=== PATIENT | female | born 1990 | race Caucasian/White ===

== ENCOUNTER → 2020-04-02 | Outpatient (CLI) | payer BC | END | disposition home or self-care (01) | LOC: LABWHC1 12:56 | PROVIDERS: ATTEND Nurse Practitioner Family | DX: Z20.828 Contact with and (suspected) exposure to other viral communicable diseases (principal) | CPT/HCPCS: U0003; C9803 ==

== ENCOUNTER 2021-01-02 13:15 | Observation (INO) | payer BC ==
[2021-01-02] MEDS ORDERED: KETOROLAC 15 MG/ML 1 ML VIAL IM STA (13:35)
[2021-01-02] MEDS ORDERED: SODIUM CHLORIDE 0.9% 1,000 ML IV ONE (13:36)
--- NOTE | 2021-01-02 13:42 | ED ---
ENT HPI - General Chief complaint: ENT Stated complaint: abscess in throat Source: patient, family, RN notes reviewed Mode of arrival: ambulatory Limitations: no limitations - History of Present Illness Initial comments: 30-year-old white female, alert and oriented 4, presents to the emergency room with her mother complaining of 3 days of sore throat and difficulty swallowing. Patient was diagnosed 2 days ago the peritonsillar abscess and prescribed amoxicillin. She's been on it for 2 days with no relief continuing to have fevers and difficulty swallowing. She does have left-sided neck swelling and tenderness. She states that her intake has been decreased and she has not urinated today. She has nausea but no vomiting. She is a nonsmoker. MD complaint: sore throat, difficulty swallowing -: days(s) (3) Location: throat Severity scale (1-10): 8 Consistency: constant Improves with: none Worsens with: swallowing, other (Talking) Associated Symptoms: fever, pain with swallowing, sore throat - Related Data Home Medications Medication Instructions Recorded Confirmed Cystoprotek 1 tab PO BID 08/27/15 08/31/15 Mirabegron [Myrbetriq] 25 mg PO HS 08/27/15 08/31/15 Norgestimate-Ethinyl Estradiol 1 tab PO HS 08/27/15 08/31/15 [Sprintec 28 Day Tablet] valACYclovir [Valtrex] 500 mg PO DAILY PRN 08/27/15 08/31/15 Ibuprofen [Motrin] 200 - 400 mg PO Q6HR PRN 08/31/15 08/31/15 Previous Rx's Medication Instructions Recorded Amoxicillin/Potassium Clav 1 each PO Q12HR #20 tab 08/31/15 [Augmentin 875-125 Tablet] Hydrocodone/Acetaminophen [[place] 1 - 2 each PO Q6HR PRN #40 tab 08/31/15 5-325] predniSONE [Deltasone] 20 mg PO DIRECTED #15 tab 08/31/15 Allergies Allergy/AdvReac Type Severity Reaction Status Date / Time No Known Allergies Allergy Verified 01/02/21 13:24 Review of Systems ROS Statement: Those systems with pertinent positive or pertinent negative responses have been documented in the HPI. ROS Other: All systems not noted in ROS Statement are negative. Past Medical History Additional Past Medical History / Comment(s): interstitial cystitis, sinus infection History of Any Multi-Drug Resistant Organisms: None Reported Past Surgical History: Adenoidectomy, Bladder Surgery, Orthopedic Surgery Additional Past Surgical History / Comment(s): arthroscopy right knee, cystoscopy, sinus surgery Past Anesthesia/Blood Transfusion Reactions: No Reported Reaction Past Psychological History: No Psychological Hx Reported Smoking Status: Never smoker Past Alcohol Use History: Occasional Past Drug Use History: None Reported - Past Family History Mother Family Medical History: No Reported History General Exam Limitations: no limitations General appearance: alert, in no apparent distress Head exam: Present: atraumatic, normocephalic, normal inspection Eye exam: Present: normal appearance, PERRL, EOMI. Absent: scleral icterus, conjunctival injection, periorbital swelling ENT exam: Present: mucous membranes moist Expanded Mouth exam: Present: normal external inspection, muffled voice, tongue normal, tongue elevation. Absent: laceration Throat exam: tonsillar erythema, tonsillar exudate (Bilateral) Neck exam: Present: tenderness, full ROM, lymphadenopathy. Absent: meningismus Respiratory exam: Present: normal lung sounds bilaterally. Absent: respiratory distress, wheezes, rales, rhonchi, stridor, decreased breath sounds Cardiovascular Exam: Present: tachycardia GI/Abdominal exam: Present: soft, normal bowel sounds. Absent: distended, tenderness, guarding, rebound, rigid Extremities exam: Present: normal inspection, full ROM, normal capillary refill. Absent: tenderness, pedal edema, joint swelling, calf tenderness Back exam: Present: normal inspection, full ROM. Absent: tenderness, CVA tenderness (R), CVA tenderness (L), muscle spasm, paraspinal tenderness, vertebral tenderness Neurological exam: Present: alert, oriented X3, CN II-XII intact Psychiatric exam: Present: normal affect, normal mood Skin exam: Present: warm, dry, intact, normal color. Absent: rash Course Vital Signs 01/02/21 01/02/21 01/02/21 13:21 14:24 15:00 Temperature 99.9 F H 98.6 F Pulse Rate 129 H 107 H Respiratory 22 18 18 Rate Blood Pressure 139/76 134/87 O2 Sat by Pulse 99 99 Oximetry 01/02/21 16:00 Temperature Pulse Rate Respiratory 18 Rate Blood Pressure O2 Sat by Pulse 99 Oximetry - Reevaluation(s) Reevaluation #1: 01/02/21 15:38 Patient's voice is clear and she states feeling a little better after IV fluids. Dr. Gutierrez at bedside with a laryngoscope to visualize the oropharynx and t onsils. There is bilateral exudates and erythema noted. Awaiting CT report Time: 15:38 Medical Decision Making - Medical Decision Making WBC count is 14.9 with a neutrophil count of 12.8. CT soft tissue neck shows diffuse cervical adenopathy more than left with an enlarged left-sided tonsil. There is asymmetric enlargement with a left-sided parotid and submandibular salivary glands with a diffuse inflammatory process. Patient was given 10 mg of Decadron IV and started on Unasyn. Blood cultures were sent. Patient will be abdomen with IV fluids and appropriate antibiotics. Case discussed with Dr. Gutierrez - Lab Data Result diagrams: 01/02/21 13:56 01/02/21 13:56 Lab Results 01/02/21 01/02/21 01/02/21 Range/Units 13:56 13:56 15:44 WBC 14.9 H (3.8-10.6) k/uL RBC 4.41 (3.80-5.40) m/uL Hgb 14.7 (11.4-16.0) gm/dL Hct 43.4 (34.0-46.0) % MCV 98.4 (80.0-100.0) fL MCH 33.4 (25.0-35.0) pg MCHC 34.0 (31.0-37.0) g/dL RDW 12.4 (11.5-15.5) % Plt Count 238 (150-450) k/uL MPV 7.4 Neutrophils % 86 % Lymphocytes % 7 % Monocytes % 5 % Eosinophils % 0 % Basophils % 0 % Neutrophils # 12.8 H (1.3-7.7) k/uL Lymphocytes # 1.0 (1.0-4.8) k/uL Monocytes # 0.7 (0-1.0) k/uL Eosinophils # 0.1 (0-0.7) k/uL Basophils # 0.1 (0-0.2) k/uL Sodium 140 (137-145) mmol/L Potassium 4.4 (3.5-5.1) mmol/L Chloride 103 (98-107) mmol/L Carbon Dioxide 21 L (22-30) mmol/L Anion Gap 16 mmol/L BUN 11 (7-17) mg/dL Creatinine 0.63 (0.52-1.04) mg/dL Est GFR (CKD-EPI)AfAm >90 (>60 ml/min/1.73 sqM) Est GFR (CKD-EPI)NonAf >90 (>60 ml/min/1.73 sqM) Glucose 96 (74-99) mg/dL Calcium 9.9 (8.4-10.2) mg/dL Heterophile Antibody Negative (Negative) Disposition Clinical Impression: Cervical adenopathy, Sore throat, Tonsillitis with exudate Disposition: ADMITTED IP TO THIS [facility] Referrals: Song Blankenship III, MD [Primary Care Provider] - 1-2 days Decision Date: 01/02/21 Decision Time: 16:36
[2021-01-02] MEDS ORDERED: BENZOCAINE SPRAY 1 CAN TOPICAL STA (13:48)
[2021-01-02 14:05] LABS: Basophils # (A) 0.1 k/uL (0-0.2); Basophils % (A) 0 %; Eosinophils # (A) 0.1 k/uL (0-0.7); Eosinophils % (A) 0 %; HCT 43.4 % (34.0-46.0); HGB 14.7 gm/dL (11.4-16.0); Lymphocytes % (A) 7 %; MCH 33.4 pg (25.0-35.0); MCV 98.4 fL (80.0-100.0); Mean Platelet Volume 7.4; Monocytes # (A) 0.7 k/uL (0-1.0); Monocytes % (A) 5 %; Neutrophils # (A) 12.8 k/uL (1.3-7.7); Neutrophils % (A) 86 %; Platelet Count 238 k/uL (150-450); RBC 4.41 m/uL (3.80-5.40); RDW 12.4 % (11.5-15.5); WBC 14.9 k/uL (3.8-10.6)
[2021-01-02 14:18] LABS: African American GFR (CKD) >90 (>60 ml/min/1.73 sqM); Anion Gap 16 mmol/L; Blood Urea Nitrogen 11 mg/dL (7-17); Calcium 9.9 mg/dL (8.4-10.2); Carbon Dioxide 21 mmol/L (22-30); Chloride 103 mmol/L (98-107); Glucose 96 mg/dL (74-99); Non-African American GFR(CKD) >90 (>60 ml/min/1.73 sqM); Sodium 140 mmol/L (137-145)
[2021-01-02] MEDS ORDERED: AMPICILLIN-SULBACTAM 3 GM in SODIUM CHLORIDE 0.9% 100 ML IVPB STA (14:43)
[2021-01-02] MEDS ORDERED: LIDOCAINE 1% INJ 10MG/ML (20 ML MDV) SQ ONE (14:43)
[2021-01-02 14:47] LABS: Potassium 4.4 mmol/L (3.5-5.1)
[2021-01-02] MEDS ORDERED: DEXAMETHASONE SOD PHOSPHATE 10 MG/ML 1 ML VIAL IV STA (15:27)
--- NOTE | 2021-01-02 15:46 | CT ---
EXAMINATION TYPE: CT soft tissue neck wo con DATE OF EXAM: 01/02/2021 COMPARISON: None HISTORY: left sided neck/mouth swelling CT DLP: 186.5 mGycm Automated exposure control for dose reduction was used. Images obtained from the top of the orbits to the thoracic inlet without contrast. Thyroid gland is symmetric. There are bilateral multiple enlarged cervical lymph nodes. These are mor e on the left side. There is mild enlargement of the left submandibular salivary gland compared to th e right. Left side parotid gland is larger than the right. There is normal epiglottis. There is asymm etric enlargement of the left tonsil compared to the right. The prevertebral soft tissues appear norm al. Adenoids appear normal. The tongue is intact. There is no evidence of orbital mass. I see no disc rete fluid collection. The cervical vertebra show some mild kyphotic deformity. This could relate to spasm. There is no evidence of a fracture. The mandible is intact. Maxilla is intact. I see no focal bone destruction. IMPRESSION: Diffuse cervical adenopathy that is more on the left side. Enlarged left side tonsil. Asymmetric enla rgement of the left side parotid and submandibular salivary glands. This is nonspecific and consisten t with a diffuse inflammatory process. No discrete salivary gland mass seen.
[2021-01-02] MEDS ORDERED: ACETAMINOPHEN TAB 325 MG TAB PO PRN (16:37)
[2021-01-02] MEDS ORDERED: NALOXONE 0.4 MG/ML 1 ML VIAL IV PRN (16:37)
[2021-01-02] MEDS ORDERED: DEXAMETHASONE SOD PHOSPHATE 4 MG/ML 1 ML VIAL IV SCH (18:00)
[2021-01-02] MEDS: SODIUM CHLORIDE 0.9% 1,000 ML IV SCH (18:11)
[2021-01-02] MEDS ORDERED: ALPRAZolam 0.25 MG TAB PO PRN (18:24)
[2021-01-02] MEDS ORDERED: TEMAZEPAM 15 MG CAP PO PRN (18:24)
[2021-01-02] MEDS ORDERED: HYDROcodone/APAP 5-325MG 1 EACH TAB PO PRN (18:24)
[2021-01-02] MEDS: PANTOPRAZOLE 40 MG TABLET PO SCH (18:54)
--- NOTE | 2021-01-02 19:46 | HP ---
HISTORY AND PHYSICAL DATE OF SERVICE: 01/02/2021 CHIEF COMPLAINTS: Throat pain and swelling and difficulty in swallowing. HISTORY OF PRESENT ILLNESS: This 30-year-old woman with a past medical history of interstitial cystitis, sinus infection, history of adenoidectomy, history of bladder surgery, history of right knee arthroscopy, being followed by Dr. Blankenship in the outpatient setting, was not feeling well over the past 3 or 4 days. The patient initially had a sore throat. Subsequently the patient had difficulty swallowing and the patient was diagnosed two days ago with a tonsillar abscess in the [facility]. Amoxicillin was given, but the patient was unable to take any medications. Because of increasing difficulties, the patient came to [facility] ER and was admitted for further evaluation and treatment. CT scan showed enlarged tonsils and lymphadenopathy; no evidence of any focal abscess. Patient was started on antibiotics and a dose of steroids, also. There is no history of any fever, rigors or chills. No history of headache, loss of consciousness, seizures. PAST MEDICAL HISTORY: History of interstitial cystitis, sinus infection, adenoidectomy and bladder surgery. HOME MEDICATIONS: 1. Valtrex 500 mg at bedtime. 3. Myrbetriq. 4. Diflucan. 5. Fexofenadine. 6. Augmentin. ALLERGIES: NONE. FAMILY HISTORY: No history of heart disease or strokes in the family. SOCIAL HISTORY: No history of smoking. Occasional alcohol intake. REVIEW OF SYSTEMS: ENT: As mentioned earlier. CARDIOVASCULAR SYSTEM: No angina, palpitations. RESPIRATORY SYSTEM: No cough, hemoptysis. GI: No nausea, vomiting. : No dysuria. NERVOUS SYSTEM: No numbness, weakness. ALLERGY/IMMUNOLOGY: No asthma or hay fever. MUSCULOSKELETAL: As mentioned earlier. HEMATOLOGY/ONCOLOGY: No history of anemia. ENDOCRINE: No history of diabetes or hypothyroidism. CONSTITUTIONAL: As mentioned earlier. DERMATOLOGY: Negative. RHEUMATOLOGY: Negative. PSYCHIATRY: As mentioned earlier. PHYSICAL EXAMINATION: Patient alert and oriented x3. Pulse 115, blood pressure 127/77, respiration 18, temperature 98.7, pulse ox 95% on room air. HEENT: Conjunctivae normal. Oral mucosa moist. Otherwise, significant swelling and areas of the left tonsillar area present. Otherwise, enlarged, some painful mild- to moderate-sized lymph nodes bilaterally, left more than the right, also present. CARDIOVASCULAR SYSTEM: S1, S2 muffled. RESPIRATORY: Breath sounds diminished at the bases. No rhonchi. No crackles. ABDOMEN: Soft, nontender. No mass palpable. LEGS: No edema. No swelling. NERVOUS SYSTEM: Higher functions as mentioned earlier. Moves all 4 limbs. No focal motor or sensory deficit. LYMPHATICS: No lymph node SKIN: No ulcer, rash, bleeding. JOINTS: No active deforming arthropathy. LABS: WBC is 14.9, sodium 140. Hemoglobin 14.6. Sodium 140, potassium 4.5. antibody is negative. ASSESSMENT: 1. Acute pharyngitis with peritonsillar abscess with acute upper respiratory infection with cervical lymphadenopathy and severe pain and dysphagia. 2. Increased white count. 3. History of interstitial cystitis. 4. History of sinus infection. 5. History of adenoidectomy. 6. History of bladder surgery. 7. FULL CODE. RECOMMENDATIONS AND DISCUSSION: In this 30-year-old woman who presented with multiple complex medical issues, we will monitor the patient closely, continue the current medications, continue symptomatic treatment. Will initiate broad-spectrum IV antibiotics and a short dose of steroids and continue to monitor. If the patient is not improving by tomorrow, will obtain an ENT evaluation. Otherwise, will continue to monitor. Repeat labs will be ordered. Symptomatic treatment. DVT prophylaxis. Monitor closely. Also recommend close followup with Dr. Blankenship in the outpatient setting. A copy of this dictation is being forwarded to Dr. Blankenship, who is the primary physician. See orders for further details. MMODL / IJN: [id number] / MTDD
[2021-01-02 20:03] LABS: ALT 11 U/L (4-34); AST 18 U/L (14-36); African American GFR (CKD) >90 (>60 ml/min/1.73 sqM); Albumin 3.7 g/dL (3.5-5.0); Alkaline Phosphatase 89 U/L (38-126); Anion Gap 10 mmol/L; Blood Urea Nitrogen 13 mg/dL (7-17); Calcium 8.8 mg/dL (8.4-10.2); Carbon Dioxide 20 mmol/L (22-30); Chloride 107 mmol/L (98-107); Glucose 150 mg/dL (74-99); Non-African American GFR(CKD) >90 (>60 ml/min/1.73 sqM); Potassium 4.5 mmol/L (3.5-5.1); Sodium 137 mmol/L (137-145); Total Bilirubin 0.2 mg/dL (0.2-1.3); Total Protein 6.8 g/dL (6.3-8.2)
[2021-01-02] MEDS: IBUPROFEN 400 MG TAB PO PRN (20:36)
[2021-01-02] MEDS: DEXAMETHASONE SOD PHOSPHATE 4 MG/ML 1 ML VIAL IV SCH (20:37)
[2021-01-02] MEDS: valACYclovir 500 MG TAB PO SCH (20:37)
[2021-01-02] MEDS: LORATADINE 10 MG TAB PO SCH (23:41)
[2021-01-02] MEDS: NORGESTIMATE ETHINYL ESTRADIOL PO SCH (23:42)
[2021-01-02] MEDS: PATIENT'S OWN (Mirabegron [Myrbetriq] 50 MG Tab.Er.24h) PO SCH (23:42)
[2021-01-03] MEDS ORDERED: DEXAMETHASONE SOD PHOSPHATE 4 MG/ML 1 ML VIAL IV SCH
[2021-01-03] MEDS ORDERED: AMPICILLIN-SULBACTAM 3 GM in SODIUM CHLORIDE 0.9% 50 ML IVPB SCH ×2
[2021-01-03] MEDS: AMPICILLIN-SULBACTAM 3 GM in SODIUM CHLORIDE 0.9% 100 ML IVPB SCH ×4 (00:02→23:00)
[2021-01-03] MEDS: DEXAMETHASONE SOD PHOSPHATE 4 MG/ML 1 ML VIAL IV SCH ×4 (02:14→20:15)
[2021-01-03] MEDS: IBUPROFEN 400 MG TAB PO PRN ×2 (02:14→08:54)
[2021-01-03 06:07] LABS: Basophils % (A) 0 %; Eosinophils # (A) 0.1 k/uL (0-0.7); Eosinophils % (A) 1 %; HCT 37.1 % (34.0-46.0); HGB 12.7 gm/dL (11.4-16.0); Lymphocytes # (A) 0.6 k/uL (1.0-4.8); Lymphocytes % (A) 6 %; MCH 33.3 pg (25.0-35.0); MCHC 34.2 g/dL (31.0-37.0); MCV 97.4 fL (80.0-100.0); Mean Platelet Volume 6.9; Monocytes # (A) 0.1 k/uL (0-1.0); Monocytes % (A) 1 %; Neutrophils # (A) 8.1 k/uL (1.3-7.7); Neutrophils % (A) 92 %; Platelet Count 220 k/uL (150-450); RBC 3.81 m/uL (3.80-5.40); RDW 12.2 % (11.5-15.5); WBC 8.9 k/uL (3.8-10.6)
[2021-01-03] MEDS: PANTOPRAZOLE 40 MG TABLET PO SCH (08:39)
[2021-01-03] MEDS ORDERED: FLUCONAZOLE 150 MG TAB PO STA (13:58)
[2021-01-03] MEDS: SODIUM CHLORIDE 0.9% 1,000 ML IV SCH ×2 (20:10→20:29)
[2021-01-03] MEDS: valACYclovir 500 MG TAB PO SCH (20:15)
[2021-01-03] MEDS: LORATADINE 10 MG TAB PO SCH (20:15)
[2021-01-03] MEDS: PATIENT'S OWN (Mirabegron [Myrbetriq] 50 MG Tab.Er.24h) PO SCH (20:16)
[2021-01-03] MEDS: NORGESTIMATE ETHINYL ESTRADIOL PO SCH (20:16)
[2021-01-03 22:18] LABS: EBV-EA (IgG) 0.4 AI; EBV-EBNA(IgG) >8.0 AI; EBV-VCA (IgG) >8.0 AI; EBV-VCA (IgM) 0.5 AI
[2021-01-04] MEDS: DEXAMETHASONE SOD PHOSPHATE 4 MG/ML 1 ML VIAL IV SCH ×2 (01:52→07:34)
--- NOTE | 2021-01-04 04:02 | P.PN ---
Subjective Progress Note Date: 01/03/21 This is a 30-year-old female who was recently admitted with significant sore throat and difficulty in swallowing and is being closely monitored. Patient was recently diagnosed 2 days prior to admission at an urgent care for a tonsillar abscess and started on oral antibiotics and continue to worsen. Computed tomography scan showed an enlarged tonsil and lymphadenopathy with no evidence of any focal abscess. Patient is on IV antibiotics in the form of Unasyn and will continue. Patient is also on high-dose IV steroids in the form of Decadron and will continue. Patient continues to have sore throat but states is improved from yesterday. Patient denies any fevers, difficulty in breathing, shortness of breath, or chest pains. Patient is tolerating diet and stating she is still having some discomfort noted with swallowing. Patient denies any feelings of throat closing at this time. ENT consulted and pending Review of systems: Constitutional: No reports of fatigue, fever, or chills, reports continued sore throat Cardiovascular: No reports of chest pain or palpitations Respiratory: No reports of shortness of breath or cough GI: No reports of nausea, vomiting, or diarrhea, reports pain with swallowing although feels is improving : No reports of dysuria or retention Neurovascular: No reports of weakness or numbness All medications have been reviewed Objective - Vital Signs Vital signs: Vital Signs Temp 97.9 F 01/03/21 08:00 Pulse 109 H 01/03/21 08:00 Resp 18 01/03/21 08:00 BP 131/83 01/03/21 08:00 Pulse Ox 98 01/03/21 08:00 Intake & Output 01/02/21 01/03/21 01/03/21 18:59 06:59 18:59 Intake Total 75 280 Output Total 750 Balance 75 -470 Weight 56.4 kg Intake: Intake, IV Titration 75 Amount Sodium Chloride 0.9% 1, 75 000 ml @ 75 mls/hr IV . [id number] [facility] Rx#:[id number] Oral 280 Output: Urine 750 Other: Voiding Method Toilet - Exam Gen: This is a 30-year-old female awake, alert and oriented 3, well-developed, well-nourished. Temp is 97.9F, pulse is 109, respirations are 18, blood pressure is 131/83, oxygen saturation is 98% on room air. HEENT: Head is atraumatic, normocephalic. Pupils equal, round. Sclerae is anicteric. NECK: Supple. No JVD. Left-sided cervical lymphadenopathy noted on exam. No thyromegaly. LUNGS: Clear to auscultation. No wheezes or rhonchi. No intercostal retractions. HEART: s1, s2 muffled ABDOMEN: Soft. Bowel sounds are present. No masses. No tenderness. EXTREMITIES: No pedal edema. No calf tenderness. NEUROLOGICAL: Patient is awake, alert and oriented x3. Cranial nerves 2 through 12 are grossly intact. - Labs CBC & Chem 7: 01/03/21 05:55 01/02/21 19:40 Labs: Abnormal Lab Results - Last 24 Hours (Table) 01/02/21 01/02/21 01/02/21 Range/Units 13:56 13:56 19:40 WBC 14.9 H (3.8-10.6) k/uL Neutrophils # 12.8 H (1.3-7.7) k/uL Lymphocytes # (1.0-4.8) k/uL Carbon Dioxide 21 L 20 L (22-30) mmol/L Glucose 150 H (74-99) mg/dL 01/03/21 Range/Units 05:55 WBC (3.8-10.6) k/uL Neutrophils # 8.1 H (1.3-7.7) k/uL Lymphocytes # 0.6 L (1.0-4.8) k/uL Carbon Dioxide (22-30) mmol/L Glucose (74-99) mg/dL Assessment and Plan Assessment: Acute pharyngitis with peritonsillar abscess with acute upper respiratory infection with cervical lymphadenopathy and severe pain and dysphagia Increased white blood count History of interstitial cystitis History of sinus infection History of adenoidectomy History bladder surgery Full code Recommendations and discussion: Recommend to continue with IV hydration and IV antibiotics. ENT consulted and pending and may need outpatient follow up. Patient continues to have significant swelling with lymphadenopathy noted on exam. Voice sounds muffled and patient continues to have discomfort with swallowing and eating. Patient denies any difficulty in breathing or throat closing sensation. Patient WBC improved at 8.9, patient is afebrile. Recommend to continue with steroids as well and will transition to oral steroid taper on discharge. Will continue to monitor closely with possible discharge in 24 hours.
[2021-01-04] MEDS: SODIUM CHLORIDE 0.9% 1,000 ML IV SCH (07:33)
[2021-01-04] MEDS: PANTOPRAZOLE 40 MG TABLET PO SCH (07:33)
[2021-01-04] MEDS: AMPICILLIN-SULBACTAM 3 GM in SODIUM CHLORIDE 0.9% 100 ML IVPB SCH (07:34)
[2021-01-04 08:51] VITALS: BP 142/90; PULSE 73; RESP 16; TEMP 97.7
--- NOTE | 2021-01-05 08:56 | P.DS ---
Providers Date of admission: 01/02/21 16:29 Expected date of discharge: 01/04/21 Attending physician: Nicholas Almaguer Primary care physician: Song Blankenship Hospital Course: Final Diagnosis Acute pharyngitis with peritonsillar abscess with acute upper respiratory infection with cervical lymphadenopathy and severe pain and dysphagia Increased white blood count History of interstitial cystitis History of sinus infection History of adenoidectomy History bladder surgery Full code Discharge disposition Patient is being discharged in a stable condition with guarded prognosis to home. Patient will follow-up with Dr. Blankenship in the outpatient setting upon discharge. Patient is to also follow-up with ENT Dr. Curiel as scheduled. Patient will continue on oral antibiotics in the form of Augmentin twice daily for the next 5 days to complete the course. Patient will also continue a Medrol Dosepak and encouraged to use Motrin and/or Tylenol. Total time taken is greater than 35 minutes. Hospital course This is a 30-year-old female who was recently admitted with significant sore throat and difficulty in swallowing and is being closely monitored. Patient was recently diagnosed 2 days prior to admission at an urgent care for a tonsillar abscess and started on oral antibiotics and continue to worsen. Computed tomography scan showed an enlarged tonsil and lymphadenopathy with no evidence of any focal abscess. Patient is on IV antibiotics in the form of Unasyn and will continue. Patient is also on high-dose IV steroids in the form of Decadron and will continue. Patient continues to have sore throat but states is improved from yesterday. Patient denies any fevers, difficulty in breathing, shortness of breath, or chest pains. Patient is tolerating diet and stating she is still having some discomfort noted with swallowing. Patient denies any feelings of throat closing at this time. ENT consulted and pending 01/04/2021 Patient is seen in follow-up this morning and left cervical lymphadenopathy significantly improved. Patient continues to have some discomfort with swallowing although states she feels much better and would like to go home if possible. Patient will follow-up outpatient with ENT Dr. Curiel an appointment was made. Patient also instructed to continue current diet and advance slowly as tolerated and to continue with antibiotics along with Medrol Dosepak until finished. Discussed with the patient if she is having any further difficulty in breathing, throat swelling, any other symptoms to return immediately to the ER. Currently no reports of chest pain, shortness of breath, or palpitations. Patient is afebrile. No reports of nausea or vomiting and patient is tolerating diet. Patient will be discharged home today. Patient instructed to follow-up with primary care provider Dr. Blankenship and recommend repeat labs in 2-3 days for CBC and BMP. On exam vital signs are stable. Cardio S1, S2 are muffled. Respiratory system shows diminished breath sounds at the bases with no wheezing or rhonchi noted. Abdomen is soft and nontender. Nervous system shows no focal deficits. Please refer to medication reconciliation sheet for a list of medications. Patient Condition at Discharge: Stable Plan - Discharge Summary Discharge Rx Participant: No New Discharge Prescriptions: New methylPREDNISolone Dose Pack [Medrol Dose Pack] 4 mg PO DIRECTED #21 package Ibuprofen [Motrin] 400 mg PO Q6HR PRN #30 tab PRN Reason: Mild Pain Or Fever > 100.5 HYDROcodone/APAP 5-325MG [[place] 5-325] 1 each PO Q6HR PRN #10 tab PRN Reason: Pain Continue valACYclovir [Valtrex] 500 mg PO HS Norgestimate-Ethinyl Estradiol [Sprintec 28 Day Tablet] 1 tab PO HS Mirabegron [Myrbetriq] 50 mg PO HS Fexofenadine HCl 180 mg PO HS Fluconazole [Diflucan] 150 mg PO Q72H PRN PRN Reason: yeast infection Changed Amoxicillin/Potassium Clav [Augmentin 875-125 Tablet] 1 tab PO BID 5 Days #10 tab Discharge Medication List Norgestimate-Ethinyl Estradiol [Sprintec 28 Day Tablet] 1 tab PO HS 08/27/15 [H istory] valACYclovir [Valtrex] 500 mg PO HS 08/27/15 [History] Fexofenadine HCl 180 mg PO HS 01/02/21 [History] Fluconazole [Diflucan] 150 mg PO Q72H PRN 01/02/21 [History] Mirabegron [Myrbetriq] 50 mg PO HS 01/02/21 [History] Amoxicillin/Potassium Clav [Augmentin 875-125 Tablet] 1 tab PO BID 5 Days #10 tab 01/04/21 [Rx] HYDROcodone/APAP 5-325MG [[place] 5-325] 1 each PO Q6HR PRN #10 tab 01/04/21 [Rx] Ibuprofen [Motrin] 400 mg PO Q6HR PRN #30 tab 01/04/21 [Rx] methylPREDNISolone Dose Pack [Medrol Dose Pack] 4 mg PO DIRECTED #21 package 01/04/21 [Rx] Follow up Appointment(s)/Referral(s): Song Blankenship III, MD [Primary Care Provider] - 1-2 days Brayan Demarco MD [STAFF PHYSICIAN] - 01/10/21 12:15 pm Activity/Diet/Wound Care/Special Instructions: Activity Limited until follow-up Follow-up with primary care provider upon discharge Follow-up with ENT outpatient as scheduled Continue with Medrol Dosepak as directed Continue with antibiotics until finished Monitor for fever and discomfort use Tylenol and/or Motrin Discharge Disposition: HOME SELF-CARE
== END 2021-01-04 13:05 | disposition home or self-care (01) ==
LOC: EC 13:15 → 6PED 16:29
PROVIDERS: ADMIT Hospitalist; ATTEND Hospitalist
DX: J36 Peritonsillar abscess (principal); R59.0 Localized enlarged lymph nodes; N30.10 Interstitial cystitis (chronic) without hematuria; Z79.3 Long term (current) use of hormonal contraceptives; Z79.899 Other long term (current) drug therapy; Z98.890 Other specified postprocedural states
CPT/HCPCS: 96366 ×2; 96376 ×3; 96361; 96365; 96372; 96375; 99284; 36415; 31505; 86665 ×2; 80053; 80048; 86663; 85025 ×2; 86308; 87040; 86664; 87502; 87634; 70490; G0378 ×3; J1100 ×4; J2001; J0295 ×3; J1885